=== PATIENT | female | born 2000 | race Caucasian/White ===

== ENCOUNTER 2024-12-07 09:59 | Emergency (ER) | payer MEDICAID ==
[~2024-12-07] VITALS: Ht 152.4 cm; Wt 100.0 kg
[2024-12-07 10:08] VITALS: O2SAT 97
[2024-12-07] MEDS: LIDOCAINE 5% PATCH TOP SCH (10:54)
[2024-12-07] MEDS ORDERED: LIDO-53 TP (11:25)
[2024-12-07 12:03] VITALS: BP 119/76; PULSE 78; RESP 18; TEMP 36.7; O2SAT 97
== END 2024-12-07 12:02 | disposition home or self-care (01) ==
LOC: ER 09:59
DX: M25.511 Pain in right shoulder (principal); F41.9 Anxiety disorder, unspecified; Z56.6 Other physical and mental strain related to work
CPT/HCPCS: 73030; 81025; 99283